=== PATIENT | male | born 1960 | race Two or more races ===

== ENCOUNTER 2019-04-30 21:01 | Emergency (ER) | payer OTHER ==
[~2019-04-30] VITALS: Ht 175.3 cm; Wt 90.7 kg
[2019-04-30 21:34] VITALS: BP 142/74
== END 2019-04-30 23:58 | disposition home or self-care (01) ==
LOC: ER 21:01
DX: J98.01 Acute bronchospasm (principal); E11.9 Type 2 diabetes mellitus without complications; F12.90 Cannabis use, unspecified, uncomplicated
CPT/HCPCS: 82962-TC